=== PATIENT | male | born 1990 | race Two or more races ===

== ENCOUNTER 2019-10-29 01:31 | Emergency (ER) | payer SELFPAY ==
[~2019-10-29] VITALS: Ht 162.6 cm; Wt 81.0 kg
[2019-10-29 02:10] VITALS: BP 117/75
--- NOTE | 2019-10-29 02:32 | PHYS DOC ---
General Adult EDM: Chief Complaint: SORE THROAT HPI: HPI: The history was obtained from the patient. Patient is a 29-year-old male with no reported PMH who presents with a chief complaint of body aches and sore throat. Patient states he has had the symptoms over the past 24 hours. He has tried 2 Tylenol tablets with minimal relief. Does note a mild headache. Does note some mild pain with swallowing. Notes nasal congestion. Denies cough. Denies objective fevers. Denies vomiting. Denies abdominal pain, chest pain, or shortness of breath. Denies any dysphonia. Denies any pain with opening his mouth. Has been able to eat and drink although it is somewhat painful. Notes he was tested for coronavirus 1 month ago and was negative. Denies any known exposure to coronavirus recently. Denies any neck pain. States he feels generally ill and fatigued. No other complaints. Review of Systems: Review of Systems: Constitutional: Positive for fevers and chills Eyes: Denies change in visual acuity. [] HENT: Positive for sore throat Respiratory: Denies cough or shortness of breath. [] Cardiovascular: Denies chest pain or edema. [] GI: Denies abdominal pain, nausea, vomiting, bloody stools or diarrhea. [] : Denies dysuria. [] Musculoskeletal: Positive for myalgias Integument: Denies rash. [] Neurologic: Denies headache, focal weakness or sensory changes. [] Endocrine: Denies polyuria or polydipsia. [] Lymphatic: Denies swollen glands. [] Psychiatric: Denies depression or anxiety. [] Heart Score: Risk Factors: Risk Factors: DM, Current or recent (<one month) smoker, HTN, HLP, family history of CAD, obesity. Risk Scores: Score 0 - 3: 2.5% MACE over next 6 weeks - Discharge Home Score 4 - 6: 20.3% MACE over next 6 weeks - Admit for Clinical Observation Score 7 - 10: 72.7% MACE over next 6 weeks - Early Invasive Strategies Current Medications: Current Medications Medications (Trade) Dose Ordered Sig/Jaren Start Time Stop Time Status Last Admin Dose Admin Dexamethasone Sodium Phosphate (Decadron) 10 mg 1X ONCE 10/29/19 02:30 10/29/19 02:31 UNV Physical Exam: PE: Constitutional: Well developed, well nourished, no acute distress, non-toxic appearance. [] HENT: Normocephalic, atraumatic, bilateral external ears normal, oropharynx moist, no oral exudates, nose normal. No tonsillar exudates noted. No uvular deviation appreciated. No trismus noted. No dysphonia. Eyes: PERRLA, EOMI, conjunctiva normal, no discharge. [] Neck: Normal range of motion, no tenderness, supple, no stridor. [] Cardiovascular:Heart rate regular rhythm, no murmur [] Lungs & Thorax: Bilateral breath sounds clear to auscultation [] Abdomen: soft, no tenderness, no masses, no pulsatile masses. [] Skin: Warm, dry, no erythema, no rash. [] Back: + 5/5 motor strength in dorsiflexion and plantarflexion of the great toes bilaterally. Sensation intact between the webbing of the first and second toes bilaterally. Extremities: No tenderness, no cyanosis, no clubbing, ROM intact, no edema. [] Neurologic: Alert and oriented X 3, normal motor function, normal sensory function, no focal deficits noted. [] Psychologic: Affect normal, judgement normal, mood normal. [] Current Patient Data: Labs: Laboratory Tests Test 10/29/19 02:21 Group A Streptococcus Rapid Negative Current Medications Medications (Trade) Dose Ordered Sig/Jaren Route PRN Reason Start Time Stop Time Status Last Admin Dose Admin Dexamethasone Sodium Phosphate (Decadron) 10 mg 1X ONCE PO 10/29/19 02:45 10/29/19 02:50 DC 10/29/19 02:55 Ibuprofen (Motrin) 600 mg 1X ONCE PO 10/29/19 02:45 10/29/19 02:50 DC 10/29/19 02:54 Vital Signs: Vital Signs Date Time Temp Pulse Resp B/P (MAP) Pulse Ox O2 Delivery O2 Flow Rate FiO2 10/29/19 02:10 99.0 109 18 117/75 (89) 100 Room Air 99.0 EKG: EKG: [] Radiology/Procedures: Radiology/Procedures: [] Impression: Patient is a clinically nontoxic appearing 29-year-old male who presents with ief complaint of sore throat and diffuse body aches. No focal nuchal rigidity noted. Normal neurologic exam. Overall low suspicion for meningitis or deep space infection of the neck. Rapid strep test negative. Physical exam not consistent with streptococcal pharyngitis. Antibiotics will be deferred until culture results. Covidwas obtained and patient will be notified of results. I do feel he is appropriate for discharge home. He was given oral Decadron and ibuprofen. Supportive care measures were given. He was given self quarantine instructions. Patient is agreeable to this plan. He was instructed to return to the emergency department in 24 to 48 hours if symptoms not improve or worsen. Patient stable for discharge home. COVID-19 CRITERIA: The patient was evaluated during the global COVID-19 pandemic, and that diagnosis was suspected/considered upon their initial presentation. Their evaluation, treatment and testing was consistent with current guidelines for patients who present with complaints or symptoms that may be related to COVID-19. Course & Med Decision Making: Course & Med Decision Making Pertinent Labs and Imaging studies reviewed. (See chart for details) [] Dragon Disclaimer: Dragon Disclaimer: This electronic medical record was generated, in whole or in part, using a voice recognition dictation system. Departure Departure Impression: Primary Impression: Body aches Additional Impression: Sore throat Disposition: HOME, SELF-CARE Condition: STABLE Referrals: NO PCP (PCP) Additional Instructions: Definicin Se le realiz la prueba de deteccin del COVID-19 o se le diagnostic dicha enfermedad. Es rut infeccin ocasionada por un nuevo tipo de coronavirus. En la mayora de los casos, el COVID-19 provoca sntomas similares a los del resfriado. En algunas personas, puede ocasionar sntomas ms graves, lila problemas respiratorios. No existe un tratamiento para el virus COVID-19. El cuerpo elimina la infeccin con el tiempo. El cuidado personal ayuda a aliviar el malestar. Pasos que debe seguir 1. Cuidados personales Descanse cuando sea necesario. Los hbitos saludables pueden ayudarlo a sentirse mejor. Algunas medidas para lograr cambios incluyen lo siguiente: - Elija alimentos saludables, lila frutas y verduras. Jacquelyn abundante cantidad de agua alejo todo el da. - Duerma brooke por la noche. - Si fuma, intente no hacerlo. Sultan ayudar a mejorar la respiracin. - Evite el alcohol. 2. Mantenga sanos a los dems El virus puede contagiarse a otras personas. Cada vez que estornuda o tose, se liberan gotitas. Las gotitas pueden entrar en la boca, la nariz o los ojos de las personas que se encuentran cerca de usted y ocasionar la infeccin. Para reducir las probabilidades de contagiar el virus COVID-19 a otros, tenga en cuenta lo siguiente: - Qudese en casa el tiempo que el mdico se lo indique. Es posible que deba quedarse en casa hasta que la enfermedad desaparezca. Salga nicamente para recibir atencin mdica o en willie de urgencia. - Evite las reas pblicas, los eventos o el transporte pblico. No reanude las actividades laborales o escolares hasta que el mdico lo autorice. - Llame previamente si necesita asistir a un centro mdico. Avise que es posible que haya contrado COVID-19. Sultan ayudar a que le indiquen adonde debe dirigirse. Garima pueden pedirle que use rut mscara facial cuando vaya al consultorio. Si llama a los servicios de asistencia mdica de urgencias, avseles que es posible que haya contrado COVID-19. Mientras est en casa: - Evite el contacto directo con otras personas. Mantngase a rut distancia aproximada de 2 metros. Si es posible, pasen la mayor parte del tiempo en whitt separadas. - Use rut mscara facial si estar en contacto directo con otras personas, por ejemplo, si compartir rut habitacin o un vehculo. - Pida a alguien que limpie las superficies comunes de la casa. Limpie picaportes, mesadas y lavamanos con limpiadores domsticos todos los hyatt. - Al toser o estornudar, cbrase con un pauelo de papel. Despus de usarlo, deschelo de inmediato. Si no tiene un pauelo de papel, tosa o estornude en el pliegue del codo. - Lvese las tari con frecuencia. Lvese las tari despus de estornudar o toser. Lvese con agua y jabn alejo, al menos, 20 segundos. Si no dispone de agua y jabn, use un limpiador de tari a base de alcohol. - No cocine para otros. Evite compartir objetos personales, lila tenedores, cucharas o cepillos de dientes. - Mientras est enfermo, evite el contacto directo con las mascotas. No hay indicios de si el virus se transmite a las mascotas. Esta es rut medida de seguridad que debe tenerse en cuenta hasta que se sepa ms acerca de melissa virus. El aislamiento puede ser frustrante. La interaccin social puede ayudar. Mantngase en contacto con amigos y familiares por telfono u otros medios tecnolgicos. Puede interactuar con otras personas en el hogar, mike mantenga rut distancia yarbrough de aproximadamente 2 metros. Seguimiento Las pruebas para confirmar la presencia del COVID-19 pueden demorar algunos hyatt. Es posible que deba seguir los pasos mencionados anteriormente hasta que estn los resultados de las pruebas. Lo llamarn del consultorio mdico para saber si madera habido algn cambio en hunt maryanne. Tambin le avisarn cuando pueda volver a estar cerca de otras personas. Problemas a los que debe estar atento Comunquese con el mdico si no se recupera segn lo previsto o si tiene problemas lila los siguientes: - Dificultad para respirar - Dolor de pecho - Empeoramiento de los sntomas Si javi que tiene rut urgencia, llame a los servicios de asistencia mdica de urgencias de inmediato. As taken from [facility] [address] [place] [address] [facility] [address] [place] [address] [facility] [address] [facility] [place] [address] [facility] [address] [place] [address] [facility] [address] [place] [address] [facility] [address] [place] [address] [facility] [address] [place] [address] [facility] [address] [place] [address] [facility] [address] [place] [address] [facility] [address] [place] [address] Scripts Ibuprofen (IBUPROFEN) 600 Mg Tablet 600 MG PO PRN Q6HRS PRN for PAIN, #20 TAB take with food or milk Prov: CARLOS JIMENEZ DO 10/29/19 Justicifation of Admission Dx: Justifications for Admission: Justification of Admission Dx: N/A CARLOS JIMENEZ DO Oct 29, 2019 02:32
[2019-10-29] MEDS ORDERED: IBUPROFEN 200 MG TABLET. PO ONE (02:45)
[2019-10-29] MEDS ORDERED: DEXAMETHASONE SOD PHOS 20 MG/5 ML VIAL. PO ONE (02:45)
[2019-10-29] MEDS ORDERED: IBUP-1007 PO (03:09)
--- NOTE | 2019-10-30 09:08 | NUR ---
Attempted to call patient at [phone] to discuss positive COVID-19 test; line continuously busy. Will try again. Addendum: 10/30/19 at 0911 by VINCENZO COELHO RN (Anette Pinedo RN)
--- NOTE | 2019-10-30 16:52 | NUR ---
2nd phone call to patient to discuss results and no answer. Phone busy. Unable to leave a message.
== END 2019-10-29 03:13 | disposition home or self-care (01) ==
LOC: ER 01:31
DX: U07.1 COVID-19 (principal); J02.9 Acute pharyngitis, unspecified; R50.9 Fever, unspecified; R51 Headache; R09.81 Nasal congestion
CPT/HCPCS: 87070; 87880; 99283; C9803; J1100; U0003